=== PATIENT | female | born 1960 | race Caucasian/White ===

== ENCOUNTER 2019-05-02 19:33 | Emergency (ER) | payer SELFPAY ==
[~2019-05-02] VITALS: Ht 157.5 cm; Wt 56.5 kg
--- NOTE | 2019-05-02 20:09 | PHYS DOC ---
Past Medical History Past Medical History: Diabetes-Type II Past Surgical History: No Surgical History Smoking Status: Current Every Day Smoker Alcohol Use: None Drug Use: None Adult General Chief Complaint Chief Complaint: ABDOMINAL PAIN [facility] HPI Patient is a 59 year old female with history of diet-controlled diabetes mellitus, hiatal hernia, cholecystectomy who presents with complaint of abdom inal pain. Patient complaining of intermittent episodes of epigastric pain for the last 3 weeks as an aching pain with radiation to her back and associated with nausea that getting more often and usually lasts about one hour. Patient states the pain is not related to eating or position and usually resolve spontaneously. Patient rated her pain 8/10. Patient denies constipation and diarrhea, urinary symptoms, fever and chills. Patient was seen by her primary care physician regarding the same pain and had CT abdomen and pelvis on March 24 without reporting any abnormality. Patient states she had unremarkable EGD and colonoscopy 1 year ago. Patient states she didn't take any pain medication or antacid. Patient states she lost about 30 pounds for the last 2 years unintentionally. Patient is a smoker. Review of Systems Review of Systems Constitutional: Denies fever or chills [] Eyes: Denies change in visual acuity, redness, or eye pain [] HENT: Denies nasal congestion or sore throat [] Respiratory: Denies cough or shortness of breath [] Cardiovascular: No additional information not addressed in HPI [] GI: Reports abdominal pain, nausea, denies vomiting, bloody stools or diarrhea [] : Denies dysuria or hematuria [] Musculoskeletal: Denies back pain or joint pain [] Integument: Denies rash or skin lesions [] Neurologic: Denies headache, focal weakness or sensory changes [] Endocrine: Denies polyuria or polydipsia [] All other systems were reviewed and found to be within normal limits, except as documented in this note. Current Medications Current Medications Current Medications Medications (Trade) Dose Ordered Sig/[facility] Start Time Stop Time Status Last Admin Dose Admin Famotidine (Pepcid Vial) 20 mg 1X ONCE 05/02/19 20:30 05/02/19 20:31 DC 05/02/19 20:15 20 MG Ondansetron HCl (Zofran) 4 mg 1X ONCE 05/02/19 20:30 05/02/19 20:31 DC 2/23/20 20:15 4 MG Allergies Allergies Allergies Coded Allergies Type Severity Reaction Last Updated Verified No Known Drug Allergies 07/24/14 No Physical Exam Physical Exam Constitutional: Well developed, well nourished, mild distress, non-toxic appearance. [] HENT: Normocephalic, atraumatic, bilateral external ears normal, oropharynx moist, no oral exudates, nose normal. [] Eyes: PERRLA, EOMI, conjunctiva normal, no discharge. [] Neck: Normal range of motion, no tenderness, supple, no stridor. [] Cardiovascular:Heart rate regular rhythm, no murmur [] Lungs & Thorax: Bilateral breath sounds clear to auscultation [] Abdomen: Bowel sounds normal, soft, no tenderness, no masses, no pulsatile masses. [] Skin: Warm, dry, no erythema, no rash. [] Back: No tenderness, no CVA tenderness. [] Extremities: No tenderness, no cyanosis, no clubbing, ROM intact, no edema. [] Neurologic: Alert and oriented X 3, normal motor function, normal sensory function, no focal deficits noted. [] Psychologic: Affect normal, judgement normal, mood normal. [] Current Patient Data Vital Signs Vital Signs Date Time Temp Pulse Resp B/P (MAP) Pulse Ox O2 Delivery O2 Flow Rate FiO2 05/02/19 22:14 66 16 123/70 (87) 94 Room Air 05/02/19 19:50 98.0 98.0 Lab Values Laboratory Tests Test 05/02/19 19:45 White Blood Count 7.7 x10^3/uL (4.0-11.0) Red Blood Count 5.07 x10^6/uL (3.50-5.40) Hemoglobin 16.2 g/dL (12.0-15.5) H Hematocrit 46.8 % (36.0-47.0) Mean Corpuscular Volume 92 fL (79-100) Mean Corpuscular Hemoglobin 32 pg (25-35) Mean Corpuscular Hemoglobin Concent 35 g/dL (31-37) Red Cell Distribution Width 14.1 % (11.5-14.5) Platelet Count 207 x10^3/uL (140-400) Neutrophils (%) (Auto) 63 % (31-73) Lymphocytes (%) (Auto) 28 % (24-48) Monocytes (%) (Auto) 7 % (0-9) Eosinophils (%) (Auto) 1 % (0-3) Basophils (%) (Auto) 1 % (0-3) Neutrophils # (Auto) 4.9 x10^3/uL (1.8-7.7) Lymphocytes # (Auto) 2.2 x10^3/uL (1.0-4.8) Monocytes # (Auto) 0.5 x10^3/uL (0.0-1.1) Eosinophils # (Auto) 0.1 x10^3/uL (0.0-0.7) Basophils # (Auto) 0.0 x10^3/uL (0.0-0.2) Urine Collection Type Unknown Urine Color Yellow Urine Clarity Clear Urine pH 7.0 Urine Specific [place] 1.010 Urine Protein Negative mg/dL (NEG-TRACE) Urine Glucose (UA) Negative mg/dL (NEG) Urine Ketones (Stick) Negative mg/dL (NEG) Urine Blood Negative (NEG) Urine Nitrite Negative (NEG) Urine Bilirubin Negative (NEG) Urine Urobilinogen Dipstick 0.2 mg/dL (0.2 mg/dL) Urine Leukocyte Esterase Negative (NEG) Urine RBC Rare /HPF (0-2) Urine WBC Rare /HPF (0-4) Urine Squamous Epithelial Cells Mod /LPF Urine Bacteria Few /HPF (0-FEW) Sodium Level 144 mmol/L (136-145) Potassium Level 4.1 mmol/L (3.5-5.1) Chloride Level 106 mmol/L (98-107) Carbon Dioxide Level 31 mmol/L (21-32) Anion Gap 7 (6-14) Blood Urea Nitrogen 14 mg/dL (7-20) Creatinine 0.7 mg/dL (0.6-1.0) Estimated GFR (Cockcroft-Gault) 85.9 BUN/Creatinine Ratio 20 (6-20) Glucose Level 133 mg/dL (70-99) H Calcium Level 9.0 mg/dL (8.5-10.1) Total Bilirubin 0.4 mg/dL (0.2-1.0) Aspartate Amino Transferase (AST) 18 U/L (15-37) Alanine Aminotransferase (ALT) 26 U/L (14-59) Alkaline Phosphatase 54 U/L (46-116) Troponin I Quantitative < 0.017 ng/mL (0.000-0.055) Total Protein 7.0 g/dL (6.4-8.2) Albumin 4.0 g/dL (3.4-5.0) Albumin/Globulin Ratio 1.3 (1.0-1.7) Lipase 106 U/L (73-393) Thyroid Stimulating Hormone (TSH) 2.308 uIU/mL (0.358-3.74) Laboratory Tests 05/02/19 19:45 Laboratory Tests 05/02/19 19:45 EKG EKG EKG interpreted by me. EKG at 20 that showed normal sinus rhythm at rate of 76, left meléndez axis, normal DE and QT intervals, no acute ST and T-wave elevation. Radiology/Procedures Radiology/Procedures [address] [address] IMAGING REPORT Signed PATIENT: ADAN OLIVER ACCOUNT: [id number] : 1960 LOCATION: ER AGE: 59 SEX: F EXAM STATUS: REG ER ORD. PHYSICIAN: GARTH CHAU MD REASON: epigastric pain, history of cholecystectomy PROCEDURE: ABDOMEN LTD Examination: Ultrasound abdomen limited HISTORY: History of epigastric pain COMPARISON: None available. FINDINGS: The pancreas is poorly visualized due to bowel gas. Visualized IVC grossly appears unremarkable. The liver length measures 13.3 cm. The common bile duct measures 7 mm in diameter. The right kidney measures 10.9 cm in length. Changes of cholecystectomy. IMPRESSION: 1. Changes of cholecystectomy. Electronically signed by: Bob Camarillo MD (05/02/2019 9:39 PM) [id number] DICTATED and SIGNED BY: BOB CAMARILLO MD DATE: 05/02/19 [address] [place] [address] IMAGING REPORT Signed PATIENT: ADAN OLIVER ACCOUNT: [id number] : 1960 LOCATION: ER AGE: 59 SEX: F EXAM STATUS: DEP ER ORD. PHYSICIAN: GARTH CHAU MD REASON: epigastric pain, increased gas in left upper quadrant in chest x-ray PROCEDURE: ABDOMEN SUPINE & UPRIGHT EXAM: 1. CHEST 2 VIEWS. 2. ABDOMEN 2 VIEWS. HISTORY: Chest and epigastric pain. COMPARISON: 07/24/2014. FINDINGS: There are no confluent infiltrates. There is no pneumothorax or pleural effusion. The heart is not enlarged. There are atherosclerotic calcifications of the aorta. Cholecystectomy clips are noted. There is no pneumoperitoneum. There is mild gaseous distention of the small bowel and colon. There is gas distally. There is stool throughout the colon. IMPRESSION: 1. No confluent infiltrates. 2. Mild gaseous distention. Correlate for mild constipation. No evidence of obstruction. Electronically signed by: Kevin Sweeney MD (05/02/2019 11:58 PM) [id number] DICTATED and SIGNED BY: ISAAC SWEENEY MD DATE: 05/02/19 2358 Course & Med Decision Making Course & Med Decision Making Pertinent Labs and Imaging studies reviewed. (See chart for details) Patient was advised to follow-up with her GI specialist. I've spoken with the patient and/or caregivers. I've explained the patient's condition, diagnosis and treatment plan based on information available to me at this time. I've answered the patient's and/or caregivers questions and addressed any concerns. The patient and/or caregivers have a good understanding the patient's diagnosis, condition and treatment plan as can be expected at this point. Vital signs have been stabilized. The patient's condition is stable for discharge from the emergency department. The patient will pursue further outpatient evaluation with her primary care provider or other designated consulting physician as outlined in the discharge instructions. Patient and/or caregivers are agreeable to this plan of care and follow-up instructions have been explained in detail. The patient and/or caregivers have received these instructions in written format and expressed understanding of these discharge instructions. The patient and her caregivers are aware that if any significant change in condition or worsening of symptoms should prompt him to immediately return to this of the closest emergency department. If an emergent department is not readily available I would encourage him to call 911. Angela Disclaimer Dragon Disclaimer This electronic medical record was generated, in whole or in part, using a voice recognition dictation system. Departure Departure Impression: Primary Impression: Epigastric pain Additional Impressions: Gastrointestinal tract imaging abnormality Constipation Disposition: HOME, SELF-CARE (at 2151) Condition: IMPROVED Referrals: NO PCP (PCP) Patient Instructions: Abdominal Pain (Nonspecific), Constipation, Adult, Diet for Gastroesophageal Reflux Disease, Adult Additional Instructions: Drink plenty of liquids Follow-up with your primary care physician in 3-5 days Return to ER if not getting better Follow-up with your GI specialist in 2 or 3 days regarding abnormal x-ray of abdomen and gas pattern Thank you for visiting [facility]. We appreciate you trusting us with your care. If any additional problems come up don't hesitate to return to visit us. Please follow up with your primary care provider so they can plan additional care if needed and know about the problem that you had. If symptoms worsen come back to the Emergency Department. Any concerning symptoms that start such as chest pain, shortness of air, weakness or numbness on one side of the body, running high fevers or any other concerning symptoms return to the ER. Scripts Ranitidine Hcl (ZANTAC) 150 Mg Tablet 1 TAB PO BID, #14 TAB Prov: GARTH CHAU MD 05/02/19 Ondansetron Hcl (ZOFRAN) 4 Mg Tablet 1 TAB PO PRN Q6-8HRS for nausea, #12 TAB Prov: GARTH CHAU MD 05/02/19 Magnesium Citrate (MAGNESIUM CITRATE) 296 Ml Solution 296 ML PO ONCE, #296 ML Drink half a bottle every 12 hours as needed for constipation Prov: GARTH CHAU MD 05/02/19 Problem Qualifiers Additional Impressions: Constipation Constipation type: unspecified constipation type Qualified Codes: K59.00 - Constipation, unspecified GARTH CHAU MD May 02, 2019 20:09
[2019-05-02 20:13] LABS: BASO % 1 % (0-3); BILIRUBIN,URINE NEGATIVE (NEG); CLARITY,URINE CLEAR; COLOR,URINE YELLOW; EOS # 0.1 x10^3/uL (0.0-0.7); EOS % 1 % (0-3); HEMATOCRIT 46.8 % (36.0-47.0); HEMOGLOBIN 16.2 g/dL (12.0-15.5); LYMPH # 2.2 x10^3/uL (1.0-4.8); LYMPH % 28 % (24-48); MEAN CORPUSCULAR HEMOGLOBIN 32 pg (25-35); MEAN CORPUSCULAR HGB CONC 35 g/dL (31-37); MEAN CORPUSCULAR VOLUME 92 fL (79-100); MONO # 0.5 x10^3/uL (0.0-1.1); MONO % 7 % (0-9); NEUT # 4.9 x10^3/uL (1.8-7.7); NEUT % 63 % (31-73); NITRITE,URINE NEGATIVE (NEG); PLATELET COUNT 207 x10^3/uL (140-400); PROTEIN,URINE NEGATIVE (NEG-TRACE); RED BLOOD COUNT 5.07 x10^6/uL (3.50-5.40); RED CELL DISTRIBUTION WIDTH 14.1 % (11.5-14.5); UROBILINOGEN,URINE 0.2 mg/dL (0.2 mg/dL); WHITE BLOOD COUNT 7.7 x10^3/uL (4.0-11.0)
[2019-05-02 20:19] LABS: BACTERIA,URINE FEW /HPF (0-FEW); RBC,URINE RARE /HPF (0-2); SQUAMOUS EPITHELIAL CELL,UR MOD /LPF; WBC,URINE RARE /HPF (0-4)
[2019-05-02 20:21] LABS: CREATININE 0.7 mg/dL (0.6-1.0); GFR 85.9; POTASSIUM 4.1 mmol/L (3.5-5.1)
[2019-05-02 20:29] LABS: ALBUMIN/GLOBULIN RATIO 1.3 (1.0-1.7); TOTAL BILIRUBIN 0.4 mg/dL (0.2-1.0)
[2019-05-02] MEDS ORDERED: ONDANSETRON PF 4 MG/2 ML VIAL. IV ONE (20:30)
[2019-05-02] MEDS ORDERED: FAMOTIDINE 20 MG/2 ML VIAL IVP ONE (20:30)
--- NOTE | 2019-05-02 20:55 | EKG ---
[facility] [address] [place] [address] Test Date: 2019-05-02 Test Time: 20:11:51 Pat Name: ADAN OLIVER Department: Room: Gender: F [employer] Operator: : 1960 Requested By: GARTH CHAU Order Number: [id number] Reading MD: Measurements Intervals [place] Rate: 76 P: 40 MT: 160 QRS: -1 QRSD: 82 T: 29 QT: 368 QTc: 413 Interpretive Statements SINUS RHYTHM LEFTWARD AXIS OTHERWISE NORMAL ECG RI6.01 No previous ECG available for comparison
--- NOTE | 2019-05-02 21:42 | RAD ---
Examination: Ultrasound abdomen limited HISTORY: History of epigastric pain COMPARISON: None available. FINDINGS: The pancreas is poorly visualized due to bowel gas. Visualized IVC grossly appears unremarkable. The liver length measures 13.3 cm. The common bile duct measures 7 mm in diameter. The right kidney measures 10.9 cm in length. Changes of cholecystectomy. IMPRESSION: 1. Changes of cholecystectomy. Electronically signed by: Bob Camarillo MD (05/02/2019 9:39 PM) [id number]
[2019-05-02] MEDS ORDERED: RANI-376 PO (21:59)
[2019-05-02] MEDS ORDERED: ONDA4TAB7 PO (21:59)
[2019-05-02] MEDS ORDERED: MAGN296S68 PO (21:59)
[2019-05-02 22:14] VITALS: BP 123/70
--- NOTE | 2019-05-03 00:01 | RAD ---
EXAM: 1. CHEST 2 VIEWS. 2. ABDOMEN 2 VIEWS. HISTORY: Chest and epigastric pain. COMPARISON: 07/24/2014. FINDINGS: There are no confluent infiltrates. There is no pneumothorax or pleural effusion. The heart is not enlarged. There are atherosclerotic calcifications of the aorta. Cholecystectomy clips are noted. There is no pneumoperitoneum. There is mild gaseous distention of the small bowel and colon. There is gas distally. There is stool throughout the colon. IMPRESSION: 1. No confluent infiltrates. 2. Mild gaseous distention. Correlate for mild constipation. No evidence of obstruction. Electronically signed by: Kevin Sweeney MD (05/02/2019 11:58 PM) [id number]
== END 2019-05-02 22:40 | disposition home or self-care (01) ==
LOC: ER 19:33
DX: K59.00 Constipation, unspecified (principal); R10.13 Epigastric pain; R93.3 Abnormal findings on diagnostic imaging of other parts of digestive tract; E11.9 Type 2 diabetes mellitus without complications; F17.200 Nicotine dependence, unspecified, uncomplicated
CPT/HCPCS: 36415; 71046; 74021; 76705; 80053; 81001; 83690; 84443; 84484; 85025; 93005; 96374; 96375; 99285; J2405; J3490

== ENCOUNTER 2019-07-04 22:18 | Emergency (ER) | payer SELFPAY ==
[~2019-07-04] VITALS: Ht 157.5 cm; Wt 56.3 kg
[~2019-07-04 22:18] MED LIST: MAGN296S68 PO; ONDA4TAB7 PO; RANI-376 PO
--- NOTE | 2019-07-04 23:44 | PHYS DOC ---
Past Medical History Past Medical History: Diabetes-Type II Past Surgical History: Cholecystectomy Smoking Status: Current Every Day Smoker Alcohol Use: None Drug Use: None General Adult EDM: Chief Complaint: GI PROBLEM HPI: HPI: Patient is a 59 year old female who presents with complaint of palpitations and chest tightness that started at about 7:00 tonight. She states that he got very uncomfortable earlier, having rated it at a 10 out of 10. She states that currently she still having some symptoms and rates it at about a 4 out of 10. She states that she had some nausea earlier but that has since resolved. She denies any vomiting or diaphoresis.[] Review of Systems: Review of Systems: Constitutional: Denies fever or chills. [] Respiratory: Denies cough or shortness of breath. [] Cardiovascular: Complains of chest pain and palpitations. [] GI: Denies abdominal pain, vomiting or diarrhea. [] Integument: Denies rash. [] Neurologic: Denies headache, focal weakness or sensory changes. [] A full 10 point review of systems has been reviewed and is otherwise negative. Heart Score: Risk Factors: Risk Factors: DM, Current or recent (<one month) smoker, HTN, HLP, family history of CAD, obesity. Risk Scores: Score 0 - 3: 2.5% MACE over next 6 weeks - Discharge Home Score 4 - 6: 20.3% MACE over next 6 weeks - Admit for Clinical Observation Score 7 - 10: 72.7% MACE over next 6 weeks - Early Invasive Strategies Allergies: Allergies: Allergies Coded Allergies Type Severity Reaction Last Updated Verified No Known Drug Allergies 07/24/14 No Physical Exam: PE: Constitutional: Well developed, well nourished, no acute distress, non-toxic appearance. [] HENT: Normocephalic, atraumatic, bilateral external ears normal, oropharynx moist, no oral exudates, nose normal. [] Eyes: PERRLA, EOMI, conjunctiva normal, no discharge. [] Neck: Normal range of motion, no tenderness, supple. [] Cardiovascular: Regular rate and rhythm[] Lungs & Thorax: Bilateral breath sounds clear to auscultation [] Abdomen: Bowel sounds normal, soft, no tenderness. [] Skin: Warm, dry, no erythema, no rash. [] Extremities: No tenderness, no cyanosis, no clubbing, ROM intact, no edema. [] Neurologic: Alert and oriented X 3, no focal deficits noted. [] EKG: EKG: [] Radiology/Procedures: Radiology/Procedures: [] Course & Med Decision Making: Course & Med Decision Making Pertinent Labs and Imaging studies reviewed. (See chart for details) Patient moved to room upon arrival was evaluated by ER medical staff after which an IV was established and blood work was drawn. Workup is returned unremarkable. I did discuss options of outpatient follow-up versus admission into the hospital and consultation with purchasing internship. Patient indicates that she would prefer to follow up as outpatient. She is asymptomatic at this time. Dragon Disclaimer: Dragon Disclaimer: This electronic medical record was generated, in whole or in part, using a voice recognition dictation system. Departure Departure Impression: Primary Impression: Palpitations Disposition: 01 HOME, SELF-CARE Condition: STABLE Referrals: NO PCP (PCP) BON VELÁSQUEZ MD Patient Instructions: Palpitations GLORIA BARNES Jr. DO Jul 04, 2019 23:44
[2019-07-04 23:56] LABS: BASO % 1 % (0-3); EOS % 0 % (0-3); HEMATOCRIT 43.5 % (36.0-47.0); HEMOGLOBIN 14.6 g/dL (12.0-15.5); LYMPH # 1.6 x10^3/uL (1.0-4.8); LYMPH % 19 % (24-48); MEAN CORPUSCULAR HEMOGLOBIN 31 pg (25-35); MEAN CORPUSCULAR HGB CONC 34 g/dL (31-37); MEAN CORPUSCULAR VOLUME 91 fL (79-100); MONO # 0.4 x10^3/uL (0.0-1.1); MONO % 4 % (0-9); NEUT # 6.5 x10^3/uL (1.8-7.7); NEUT % 76 % (31-73); PLATELET COUNT 217 x10^3/uL (140-400); RED BLOOD COUNT 4.79 x10^6/uL (3.50-5.40); RED CELL DISTRIBUTION WIDTH 13.6 % (11.5-14.5); WHITE BLOOD COUNT 8.6 x10^3/uL (4.0-11.0)
[2019-07-05] MEDS ORDERED: IV NORMAL SALINE 1000ML BAG 1,000 ML IV SCH
[2019-07-05 00:04] LABS: CALCIUM 9.1 mg/dL (8.5-10.1); CREATININE 0.6 mg/dL (0.6-1.0); GFR 102.7; POTASSIUM 4.2 mmol/L (3.5-5.1)
[2019-07-05 00:09] LABS: BILIRUBIN,URINE NEGATIVE (NEG); CLARITY,URINE CLOUDY; COLOR,URINE YELLOW; NITRITE,URINE NEGATIVE (NEG); PH,URINE 5.5 (<5.0-8.0); PROTEIN,URINE NEGATIVE (NEG-TRACE); UROBILINOGEN,URINE 0.2 mg/dL (0.2 mg/dL)
[2019-07-05 00:10] LABS: ALBUMIN 3.6 g/dL (3.4-5.0); ALBUMIN/GLOBULIN RATIO 1.1 (1.0-1.7); TOTAL BILIRUBIN 0.3 mg/dL (0.2-1.0); TOTAL PROTEIN 6.9 g/dL (6.4-8.2)
[2019-07-05 00:27] LABS: BACTERIA,URINE FEW /HPF (0-FEW); RBC,URINE 0 /HPF (0-2); SQUAMOUS EPITHELIAL CELL,UR MOD /LPF
--- NOTE | 2019-07-05 00:57 | EKG ---
[facility] [address] [place] [address] Test Date: 2019-07-04 Test Time: 23:43:46 Pat Name: ADAN OLIVER Department: Room: Gender: F [employer] Person: : 1960 Requested By: GLORIA BARNES Order Number: [id number] Reading MD: Genaro Perla Measurements Intervals [place] Rate: 70 P: 54 VT: 162 QRS: 24 QRSD: 84 T: 33 QT: 392 QTc: 426 Interpretive Statements SINUS RHYTHM NORMAL ECG Electronically Signed On 07-05-2019 19:27:23 CDT by Genaro Perla
[2019-07-05 01:27] VITALS: BP 171/76
--- NOTE | 2019-07-05 02:03 | RAD ---
Study: CR PORTABLE CHEST 1V Indication: Palpitations. Chest discomfort. Comparison: 05/02/2019 Findings: Unchanged cardiomediastinal silhouette and danielle. No pneumothorax, lobar consolidation or pleural effusion. Probable nipple shadow approaching the right costophrenic angle. Grossly intact osseous structures. Impression: No acute radiographic abnormality of the chest. Electronically signed by: WIL PHAN MD (07/05/2019 2:00 AM) [id number]
== END 2019-07-05 01:40 | disposition home or self-care (01) ==
LOC: ER 22:18
DX: R00.2 Palpitations (principal); R07.89 Other chest pain; R11.0 Nausea; E11.9 Type 2 diabetes mellitus without complications; F17.200 Nicotine dependence, unspecified, uncomplicated
CPT/HCPCS: 36415; 71045; 80053; 81001; 83690; 83735; 83880; 84484; 85025; 87086; 93005; 99285; J7030